=== PATIENT | female | born 1950 | race Caucasian/White ===

== ENCOUNTER 2017-07-20 07:21 | Inpatient (IN) | payer MEDICARE, BC ==
[~2017-07-20] VITALS: Ht 160 cm; Wt 56.7 kg
[~2017-07-20 07:21] MED LIST: PROAIR HFA INH8.5 GM INH; SINGULAIR10 MG PO
[2017-07-20] MEDS ORDERED: DYMISTA NASAL S23 GM (07:39)
[2017-07-20 07:56] LABS: BASOPHILS # (AUTO) 0.1 (0.0-0.1); BASOPHILS % 1.2 % (0.0-1.0); EOSINOPHILS # (AUTO) 0.2 (0.0-0.4); EOSINOPHILS % 3.5 % (0.0-6.0); HEMATOCRIT 42.1 % (34.2-44.1); HEMOGLOBIN 13.8 g/dL (12.0-16.0); LYMPHOCYTES # (AUTO) 2.5 (1.0-3.2); LYMPHOCYTES % 44.2 % (18.0-39.1); MEAN CORPUSCULAR HEMOGLOBIN 31.2 pg (28-32); MEAN CORPUSCULAR HGB CONC 32.8 g/dL (31-35); MEAN CORPUSCULAR VOLUME 95.2 fL (81-99); MONOCYTES # (AUTO) 0.6 (0.2-0.8); MONOCYTES % 10.5 % (4.4-11.3); NEUTROPHILS # (AUTO) 2.3 (2.1-6.9); NEUTROPHILS % 40.4 % (38.7-80.0); PLATELET COUNT 235 x10e3/uL (140-360); RED BLOOD COUNT 4.42 x10e6/uL (3.6-5.1); RED CELL DISTRIBUTION WIDTH 12.8 % (11.7-14.4)
--- NOTE | 2017-07-20 08:07 | Diagnostic Imaging Report ---
PROCEDURE:CHEST 2 VIEWS TECHNIQUE:PA and lateral chest INDICATION:Preoperative evaluation for hernia repair COMPARISON:None. FINDINGS: Symmetric hyperinflation with paucity of interstitial markings in the upper lung zones. Lungs otherwise clear and symmetrically inflated. Normal heart size. Mild pulmonary artery prominence. Intact skeleton. CONCLUSION: Emphysema and associated sequela. No acute abnormality. Dictated by: Davi Simpson M.D. on 07/20/2017 at 8:16 Electronically approved by: Davi Simpson M.D. on 07/20/2017 at 8:16
[2017-07-20 08:17] LABS: ANION GAP 13.1 mmol/L (8-16); BLOOD UREA NITROGEN 17 mg/dL (7-26); BUN/CREATININE RATIO 20 (6-25); CALCIUM 9.3 mg/dL (8.4-10.2); CARBON DIOXIDE 25 mmol/L (22-29); CHLORIDE 105 mmol/L (98-107); CREATININE, SERUM 0.83 mg/dL (0.57-1.11); EST GLOMERULAR FILTRATION RATE > 60 ML/MIN (60-); GLUCOSE 100 mg/dL (74-118); POTASSIUM 4.1 mmol/L (3.5-5.1); SODIUM 139 mmol/L (136-145)
[2017-07-20] MEDS ORDERED: LIDOCAINE HCL 1% LOCAL INJ 20 ML VIAL ONE (09:52)
[2017-07-20] MEDS ORDERED: BUPIVACAINE HCL 0.5% INJ 30 ML VIAL INJ ONE (09:52)
[2017-07-20] MEDS: DEXTROSE 5%/LACTATED RINGERS 1,000 ML IV SCH (10:00)
[2017-07-20] MEDS ORDERED: LEVOFLOXACIN 500MG/D5W 100ML 100 ML IV ONE (10:12)
[2017-07-20] MEDS ORDERED: NALOXONE HCL INJ 0.4 MG/ML AMP IV PRN (13:30)
[2017-07-20] MEDS ORDERED: HYDROMORPHONE 0.2MG/ML-SOD CHL 30ML PCA SYRINGE IV PRN (13:30)
[2017-07-20] MEDS ORDERED: HYDROMORPHONE 0.2MG/ML-SOD CHL 30ML PCA SYRINGE IV ONE (14:08)
[2017-07-20] MEDS: PANTOPRAZOLE 40 MG 10ML VIAL IV SCH (15:00)
--- NOTE | 2017-07-20 15:30 | Operative Report ---
DATE OF PROCEDURE: July 20, 2017 PREOPERATIVE DIAGNOSIS: Recurrent ventral hernia. POSTOPERATIVE DIAGNOSIS: Recurrent ventral hernia. OPERATION PERFORMED: Exploratory laparotomy, extensive lysis of adhesions, removal of old intra-abdominal mesh and repair of recurrent ventral hernia with Physiomesh. ANESTHESIA: General. COMPLICATIONS: None. ESTIMATED BLOOD LOSS: 25 mL. DESCRIPTION OF PROCEDURE: With the patient lying in bed in the supine position, under good general endotracheal anesthesia, the abdomen was prepped with Betadine solution and draped in the usual manner. The old upper midline incision was excised. Immediately in the subcutaneous tissue, a hernia sac was encountered. The hernia sac was then dissected in all directions, and the fascia was identified all the way around. The hernia extended from just below the xiphoid to the area just above the umbilicus. There were several other holes present. There was one particular hole on the patient's right paraumbilical region lateral to where he had one of his previous repairs. There were some circumferential Prolene sutures around the umbilicus that had to be taken down. The umbilicus was from the old repair. At this point, we went ahead and entered the hernia sac and the intra-abdominal cavity. Exploration at this point revealed tight adhesions between the small bowel and the mesh that was in the mid abdomen. The adhesions were then slowly and carefully taken down, and we managed to separate all the bowel without entering the bowel, and all of the adhesions to the mesh were taken down. There was one small serosal tear, which was closed with interrupted sutures of 3-0 silk. After this was done, we decided at this point that, since there were herniations all the way around the old mesh above it and lateral to it, that we would need to repair the entire area. The best way to do it would be to do it intra-abdominally. We went ahead and removed the old mesh in order to be able to do this. Once the old mesh was removed, a Physiomesh to fit the appropriate size was placed and was then anchored in all corners with #1 Prolene. The mesh was then further anchored with a tacker. This gave us a satisfactory reinforcement. Once this was done, the midline fascia of the hernia defect was then closed with a running suture of #1 PDS and also interrupted #1 Prolene sutures. This gave us a satisfactory closure without any tension. The whole area was thoroughly irrigated. Hemostasis was ascertained. The umbilicus was then tacked back down to the midline fascia with 3-0 Vicryl. A 10 flat Andrade-Cortes drain was then placed and brought out through a separate stab wound incision. The subcutaneous tissue was approximated with 2-0 Vicryl, and the skin was closed with clips. Dressings were applied. The sponge, lap and needle count was correct. The patient tolerated the procedure well and returned to the recovery room in stable condition. Job#: [id number]
[2017-07-20] MEDS ORDERED: SEVOFLURANE INHAL SOLN 250 ML PEN BTL ONE (18:15)
[2017-07-20] MEDS ORDERED: LIDOCAINE HCL 2% LOCAL INJ 5 ML SDV VIAL INJ ONE (18:15)
[2017-07-20] MEDS ORDERED: PHENYLEPHRINE HCL 1% 10 MG/ML VIAL ONE (18:15)
[2017-07-20] MEDS ORDERED: ROCURONIUM BROMIDE 10 MG/ML 5ML VIAL ONE (18:15)
[2017-07-20] MEDS ORDERED: PROPOFOL IV EMULSION 10 MG/ML 20 ML VIAL ONE (18:15)
[2017-07-20] MEDS ORDERED: ONDANSETRON HCL INJ 2 MG/ML VIAL ONE (18:15)
[2017-07-20] MEDS ORDERED: EPHEDRINE SULFATE INJ 50 MG/10 ML SYR ONE (18:15)
[2017-07-20] MEDS ORDERED: DEXAMETHASONE SOD PHOS INJ 4 MG/ML VIAL ONE (18:15)
[2017-07-20] MEDS ORDERED: MIDAZOLAM HCL 2 MG/2 ML VIAL ONE (18:33)
[2017-07-20] MEDS ORDERED: FENTANYL CITRATE/PF 100MCG/2 ML INJ ONE ×2 (18:33→19:12)
[2017-07-20 20:00] VITALS: BP 140/78
[2017-07-21] VITALS (10 sets, daily range): BP systolic 122–146; BP diastolic 63–84
--- OUTSIDE RECORDS SUMMARY | 2017-07-21 | XMS REPORT ---
Author [facility] Address Unknown Phone Unavailable Care Team Providers Care Row Boss Hoeing Name Role Phone CARA SAL Unavailable Unavailable Problems This patient has no known problems. Allergies, Adverse Reactions, Alerts This patient has no known allergies or adverse reactions. Medications This patient has no known medications. Results Test Description Test Time Test Comments Text Results Atomic Results Result Comments CHEST 2 VIEWS [place] [address] Patient Name: JIMY REYNOLDS MR #: [id number] : 1950 Age/Sex: 67/F Req #: [id number] Adm Physician: Ordered by: CARA SAL MD Report #: [id number] Location: OR Room/Bed: Procedure: [id number] DX/CHEST 2 VIEWS Exam Date: Exam Time: REPORT STATUS: Signed PROCEDURE: CHEST 2 VIEWS TECHNIQUE: PA and lateral chest INDICATION: Preoperative evaluation for hernia repair COMPARISON: None. FINDINGS: Symmetric hyperinflation with paucity of interstitial markings in the upper lung zones. Lungs otherwise clear and symmetrically inflated. Normal heart size. Mild pulmonary artery prominence. Intact skeleton. CONCLUSION: Emphysema and associated sequela. No acute abnormality. Dictated by: Ric Simpson M.D. on 07/20/2017 at 8:16 Electronically approved by: Ric Simpson M.D. on 07/20/2017 at 8:16 Dictated By: RIC SIMPSON MD 5 Transcribed By: YEVGENIY on 07/20/17815 COPY TO: CARA SAL MD
[2017-07-21] MEDS: SODIUM CHLORIDE 0.9% 250ML IRRIG IR SCH ×3 (03:51→09:03)
[2017-07-21] MEDS ORDERED: DEXTROSE 5%/LACTATED RINGERS 1,000 ML IV ONE (05:51)
[2017-07-21] MEDS: DEXTROSE 5%/LACTATED RINGERS 1,000 ML IV SCH ×2 (05:51→14:23)
[2017-07-21 07:06] LABS: BASOPHILS # (AUTO) 0.1 (0.0-0.1); BASOPHILS % 0.6 % (0.0-1.0); EOSINOPHILS % 0.1 % (0.0-6.0); HEMATOCRIT 38.8 % (34.2-44.1); HEMOGLOBIN 12.5 g/dL (12.0-16.0); LYMPHOCYTES # (AUTO) 1.7 (1.0-3.2); LYMPHOCYTES % 16.9 % (18.0-39.1); MEAN CORPUSCULAR HEMOGLOBIN 31.3 pg (28-32); MEAN CORPUSCULAR HGB CONC 32.2 g/dL (31-35); MONOCYTES # (AUTO) 0.8 (0.2-0.8); MONOCYTES % 8.1 % (4.4-11.3); NEUTROPHILS # (AUTO) 7.6 (2.1-6.9); NEUTROPHILS % 73.9 % (38.7-80.0); PLATELET COUNT 213 x10e3/uL (140-360); RED CELL DISTRIBUTION WIDTH 13.1 % (11.7-14.4)
[2017-07-21 07:27] LABS: ANION GAP 10.4 mmol/L (8-16); BLOOD UREA NITROGEN 9 mg/dL (7-26); BUN/CREATININE RATIO 12 (6-25); CALCIUM 8.9 mg/dL (8.4-10.2); CARBON DIOXIDE 27 mmol/L (22-29); CHLORIDE 104 mmol/L (98-107); CREATININE, SERUM 0.75 mg/dL (0.57-1.11); EST GLOMERULAR FILTRATION RATE > 60 ML/MIN (60-); GLUCOSE 122 mg/dL (74-118); POTASSIUM 4.4 mmol/L (3.5-5.1); SODIUM 137 mmol/L (136-145)
[2017-07-21] MEDS ORDERED: LEVOFLOXACIN 500MG/D5W 100ML 100 ML IV ONE ×2 (09:00)
[2017-07-21] MEDS: PANTOPRAZOLE 40 MG 10ML VIAL IV SCH (14:43)
[2017-07-21] MEDS: ONDANSETRON HCL INJ 2 MG/ML VIAL IV PRN (14:47)
[2017-07-21] MEDS ORDERED: MORPHINE SULFATE 4 MG/ML SYR IV PRN (15:45)
[2017-07-21] MEDS ORDERED: ACETAMINOPHEN 1000 MG/100 ML IV SCH (18:00)
[2017-07-21] MEDS ORDERED: ACETAMINOPHEN 1000 MG/100 ML IV PRN (18:00)
[2017-07-21] MEDS: KETOROLAC TROMETHAMINE 30 MG/ML VIAL IV PRN (19:12)
[2017-07-22] VITALS: BP 155/72
[2017-07-22] MEDS: DEXTROSE 5%/LACTATED RINGERS 1,000 ML IV SCH (00:49)
[2017-07-22] MEDS: MORPHINE SULFATE 2 MG/ML SYR IV PRN ×2 (01:07→09:47)
[2017-07-22] MEDS: ONDANSETRON HCL INJ 2 MG/ML VIAL IV PRN ×2 (01:07→09:47)
[2017-07-22 04:00] VITALS: BP 156/82
[2017-07-22] MEDS: KETOROLAC TROMETHAMINE 30 MG/ML VIAL IV PRN ×2 (05:55→16:55)
[2017-07-22 08:28] VITALS: BP 132/58
[2017-07-22 11:43] VITALS: BP 115/55
[2017-07-22] MEDS: PANTOPRAZOLE 40 MG 10ML VIAL IV SCH ×3 (15:03→15:10)
[2017-07-22 16:49] VITALS: BP 178/85
[2017-07-22] MEDS ORDERED: HYDROCODONE/APAP 7.5MG-325MG 1 EA TAB PO PRN (19:30)
[2017-07-22 20:00] VITALS: BP 149/71
[2017-07-22] MEDS: BISACODYL 10 MG SUPP PR SCH (21:00)
[2017-07-23] VITALS: BP 156/82
[2017-07-23] MEDS: ONDANSETRON HCL INJ 2 MG/ML VIAL IV PRN (01:21)
[2017-07-23 04:00] VITALS: BP 162/73
[2017-07-23] MEDS: BISACODYL 10 MG SUPP PR SCH (08:00)
[2017-07-23 08:49] VITALS: BP 165/84
[2017-07-23 12:06] VITALS: BP 179/82
[2017-07-23] MEDS: KETOROLAC TROMETHAMINE 30 MG/ML VIAL IV PRN (13:47)
[2017-07-23] MEDS: PANTOPRAZOLE 40 MG 10ML VIAL IV SCH ×2 (15:00→15:35)
[2017-07-23 17:59] VITALS: BP 168/73
[2017-07-23 20:00] VITALS: BP 165/72
== END 2017-07-23 20:45 | disposition home or self-care (01) | DRG 355 ==
LOC: OR 07:21 → MED/SURG 23:57
PROVIDERS: ADMIT Surgery; ATTEND Surgery
PROC: 0WUF0JZ Supplement Abdominal Wall with Synthetic Substitute, Open Approach (ICD-10-PCS; principal; 2017-07-20 10:49)
PROC: 0WJF4ZZ Inspection of Abdominal Wall, Percutaneous Endoscopic Approach (ICD-10-PCS; principal; 2017-07-20 10:49)
PROC: 3E0M05Z Introduction of Adhesion Barrier into Peritoneal Cavity, Open Approach (ICD-10-PCS; principal; 2017-07-20 10:49)
DX: K43.9 Ventral hernia without obstruction or gangrene (principal); J45.909 Unspecified asthma, uncomplicated; Z87.11 Personal history of peptic ulcer disease
CPT/HCPCS: 36415; 71046; 80048; 85025; 88302; 93005; J1100; J1885; J1956; J2001; J2250; J2270; J2370; J2405; J7120

== ENCOUNTER → 2017-09-29 | Outpatient (CLI) | payer MEDICARE, BC ==
[~2017-09-29] MED LIST changes: +DYMISTA NASAL S23 GM
--- NOTE | 2017-09-29 13:04 | Diagnostic Imaging Report ---
EXAM: DXA BONE DENSITY INDICATIONS: DISORDER OF BONE COMPARISON: None. FINDINGS: Proximal left femur bone mineral density (BMD) (g/cm2):-0.627 Femur T-score (standard deviation relative to young adult mean BMD): -2.6 Femur Z-score (standard deviation relative to age-matched control group):-1.3 Lumbar bone mineral density (BMD) (g/cm2):0.728 Lumbar T-score (standard deviation relative to young adult mean BMD): -2.9 Lumbar Z-score (standard deviation relative to age-matched control group):-1.1 Change since prior exam (%): Femur:Not applicable. Spine:Not applicable. Change since oldest prior exam (%): Femur:Not applicable. Spine:Not applicable. CONCLUSION: 1. Bone mineral density in the left femur is classified as osteoporosis. Fracture risk is increased. 2. Bone mineral density in the spine is classified as osteoporosis. Fracture risk is increased. World Health Organization Classification: *The Z-score is provided for informational purposes. The T-score is preferable for clinical decisions. When comparing exams, a change of >4% is considered statistically significant. SUGGESTED RECOMMENDATIONS: Normal \T\ Osteopenia:Consideration should be given to use of calcium supplementation, daily multiple vitamins and adequate exercise, as preventive measures against osteoporosis, if clinically indicated. Osteoporosis \T\ Severe Osteoporosis:In addition to the above, consideration should be given to medical therapy against osteoporosis, if clinically indicated. Curly Hudson D.O. Dictated by: Curly Hudson D.O. on 09/29/2017 at 13:05 Electronically approved by: Curly Hudson D.O. on 09/29/2017 at 13:05
--- NOTE | 2017-09-30 08:53 | Diagnostic Imaging Report ---
#[id number] - MGSCRBIL #BILATERAL DIGITAL SCREENING MAMMOGRAM WITH CAD: 09/29/2017 CLINICAL: Routine screening. Comparison is made to exam dated: 06/26/2012 mammogram - [facility]. Current study contains 4 films. The tissue of both breasts is heterogeneously dense. This may lower the sensitivity of mammography. Current study was also evaluated with a Computer Aided Detection (CAD) system. There are benign calcifications in both breasts. No significant masses, calcifications, or other findings are seen in either breast. There has been no significant interval change. IMPRESSION: BENIGN There is no mammographic evidence of malignancy. A 1 year screening mammogram is recommended. The patient will be notified by letter of the results. Curly echavarria/bertrand:09/29/2017 13:05:27 Paper Grader: Vero ARIAS(Geovanny)(M), [facility] letter sent: Compared to Prior B9 Mammogram BI-RADS: 2 Benign
== END ==
LOC: MAMMO 12:09
PROVIDERS: ATTEND Obstetrics & Gynecology
DX: Z12.31 Encounter for screening mammogram for malignant neoplasm of breast (principal); M89.9 Disorder of bone, unspecified
CPT/HCPCS: 77067; 77080

== ENCOUNTER → 2019-07-13 | Day surgery (SDC) | payer MEDICARE, BC ==
[2019-07-11 15:48] LABS: BASOPHILS # (AUTO) 0.1 (0.0-0.1); BASOPHILS % 1.3 % (0.0-1.0); EOSINOPHILS # (AUTO) 0.3 (0.0-0.4); EOSINOPHILS % 3.9 % (0.0-6.0); HEMOGLOBIN 14.9 g/dL (12.0-16.0); LYMPHOCYTES # (AUTO) 3.4 (1.0-3.2); LYMPHOCYTES % 49.1 % (18.0-39.1); MEAN CORPUSCULAR HEMOGLOBIN 32.3 pg (28-32); MEAN CORPUSCULAR HGB CONC 33.1 g/dL (31-35); MEAN CORPUSCULAR VOLUME 97.6 fL (81-99); MONOCYTES # (AUTO) 0.6 (0.2-0.8); MONOCYTES % 9.2 % (4.4-11.3); NEUTROPHILS # (AUTO) 2.5 (2.1-6.9); NEUTROPHILS % 36.4 % (38.7-80.0); PLATELET COUNT 268 x10e3/uL (140-360); RED BLOOD COUNT 4.61 x10e6/uL (3.6-5.1); RED CELL DISTRIBUTION WIDTH 12.6 % (11.7-14.4)
--- NOTE | 2019-07-11 16:18 | Diagnostic Imaging Report ---
EXAMINATION: CHEST 2 VIEWS INDICATION: Pre-operative COMPARISON: Chest radiograph 07/20/2017 FINDINGS: LINES/TUBES:None LUNGS:The lungs are hyperinflated. Bilateral upper lobe predominant emphysematous changes. No focal consolidation or pulmonary edema. PLEURA:No pleural effusion or pneumothorax. MEDIASTINUM:The cardiomediastinal silhouette appears unchanged in size and shape. Atherosclerotic calcifications of the thoracic aorta. BONES/SOFT TISSUES:No acute osseous injury. ABDOMEN:No free air under the diaphragm. IMPRESSION: Hyperinflated lungs with emphysematous changes. No focal pneumonia or pulmonary edema. Signed by: Howard Gonzalez MD on 07/11/2019 4:16 PM
[~2019-07-13] MED LIST changes: +BUPIVACAINE HCL 0.5% INJ 30 ML VIAL INJ ONE; +DEXAMETHASONE SOD PHOS INJ 4 MG/ML VIAL ONE; +FENTANYL CITRATE/PF 100MCG/2 ML INJ ONE; +KETOROLAC TROMETHAMINE 30 MG/ML VIAL ONE; +LIDOCAINE HCL 2% LOCAL INJ 5 ML SDV VIAL INJ ONE; +LOSARTAN POTASS25 MG PO; +MIDAZOLAM HCL 2 MG/2 ML VIAL ONE; +ONDANSETRON HCL INJ 2MG/ML 2ML 2 MG/ML VIAL ONE; +PROPOFOL IV EMULSION 10 MG/ML 20 ML VIAL ONE; +SEVOFLURANE INHAL SOLN 250 ML PEN BTL ONE; +TRELEGY ELLIPT1 EACH INH; +VANCOMYCIN 1GM/NS 250 ML 250 ML ONE
[2019-07-13 08:25] VITALS: BP 132/70
--- NOTE | 2019-07-13 14:33 | Operative Report ---
DATE OF PROCEDURE: 07/13/2019 SURGEON: Gold Sauceda DPM PREOPERATIVE DIAGNOSES: 1. Hypertrophied condyle, first metatarsal and proximal phalanx, left foot. 2. Hypertrophied condyle, left fifth metatarsal. 3. Dorsally contracted digit, left fifth. PLANNED PROCEDURES: 1. Condylectomy, left first metatarsal. 2. Condylectomy, left fifth metatarsal. 3. V to Y skin plasty with extensor tenotomy. HAT AND CAP DRYING ROOM ATTENDANT: Gold Sauceda DPM ANESTHESIA: General with a postoperative block consisting of 15 mL of 2% Marcaine plain mixed with 1 mL of dexamethasone phosphate. HEMOSTASIS: Pneumatic thigh tourniquet set at 350 mmHg for a total time of approximately 30 minutes. MATERIALS: 2-0 Vicryl, 3-0 Vicryl, 4-0 nylon. ESTIMATED BLOOD LOSS: Less than 10 mL. PATHOLOGY: None. PROCEDURE NOTE: The patient was seen in the preoperative waiting room. The correct procedure site was identified. The patient was brought to the operating room and placed on the operating table in the supine position. General anesthesia was initiated. At this time, a well-padded pneumatic tourniquet was placed about the patient's left thigh. The left foot, ankle, and leg were then scrubbed, prepped, and draped in the usual aseptic manner. The right foot, ankle, and leg were exsanguinated with an Esmarch bandage and the pneumatic thigh tourniquet was inflated to 350 mmHg for a total time of approximately 30 minutes. Attention was directed to the medial aspect of the patient's left first metatarsophalangeal joint, where a 5 cm linear incision was made. Incision was carried through subcutaneous tissue them from deep or underlying structures. All vital neurovascular structures were identified, retracted medially and laterally and all bleeders were cauterized or ligated as deemed necessary. At this time, a linear capsulotomy was performed at the medial aspect of the first metatarsophalangeal joint and dissected down to the level of the plantar condyles of the first metatarsal as well as the proximal phalanx. Care was ensured to identify and retract the flexor hallucis longus tendon. Next utilizing a rotary bur, the plantar condyles of the first metatarsal as well as the base of the proximal phalanx were reduced and passed off to the back table. The wound was then copiously irrigated with sterile saline capsule and deep tissue were reapproximated with 2-0 Vicryl, subcutaneous tissue with 3-0 Vicryl, and the skin was closed using a running interlocking stitch of 4-0 nylon. Attention was then directed to the fifth metatarsophalangeal joint, where a V to Y skin plasty incision was performed approximately 1 cm in length each. The dissection was then carried down to the level of fifth metatarsophalangeal joint where extensor tenotomy was performed. The fifth metatarsophalangeal joint was entered utilizing a #15 blade and McGlamry elevator to free of all capsular ligamentous attachments. Next, utilizing an osteotome and mallet, the plantar condyle was resected and utilizing a rasp, smoothed down to anatomical alignment. The wound was then copiously irrigated with sterile saline. The deep tissues reapproximated 3-0 Vicryl, subcutaneous tissue with 3-0 Vicryl, and the skin was closed in a V to Y fashion with simple interrupted sutures of 4-0 nylon. Incision site was dressed with Adaptic, 4x4s, Kerlix, Panda wrap, and a postop shoe. The patient tolerated the procedure and anesthesia well. The patient was transferred to the postoperative recovery with vital signs stable and vascular status intact. The patient was monitored there for a short period of time before being sent home with the following written and oral instructions: 1. Keep the dressing clean, dry, and intact. 2. The patient is to remain partial heel touch weightbearing to the left foot to avoid excessive ambulation until being seen in the office. 3. The patient is given the office number to contact us if any problems arise. Dictated by Gold Sauceda DPM S BRITTANY Barrett (Charley)/MODL /[id number]
== END | disposition home or self-care (01) ==
LOC: OR 05:22
PROVIDERS: ATTEND Podiatrist Foot & Ankle Surgery
DX: M89.372 Hypertrophy of bone, left ankle and foot (principal); M21.622 Bunionette of left foot; M20.5X2 Other deformities of toe(s) (acquired), left foot; J44.9 Chronic obstructive pulmonary disease, unspecified; I10 Essential (primary) hypertension; F32.9 Major depressive disorder, single episode, unspecified; Z88.1 Allergy status to other antibiotic agents; Z88.0 Allergy status to penicillin; Z88.2 Allergy status to sulfonamides; Z01.810 Encounter for preprocedural cardiovascular examination; Z01.812 Encounter for preprocedural laboratory examination; Z01.818 Encounter for other preprocedural examination
CPT/HCPCS: 28124; 28288 ×2; 36415; 71046; 85025; 93005; J1100; J1885; J2001; J2250; J2405; J2704; J3010; J3370

== ENCOUNTER → 2019-11-11 | Outpatient (CLI) | payer MEDICARE, BC ==
[~2019-11-11] MED LIST changes: -BUPIVACAINE HCL 0.5% INJ 30 ML VIAL INJ ONE; -DEXAMETHASONE SOD PHOS INJ 4 MG/ML VIAL ONE; -FENTANYL CITRATE/PF 100MCG/2 ML INJ ONE; -KETOROLAC TROMETHAMINE 30 MG/ML VIAL ONE; -LIDOCAINE HCL 2% LOCAL INJ 5 ML SDV VIAL INJ ONE; -MIDAZOLAM HCL 2 MG/2 ML VIAL ONE; -ONDANSETRON HCL INJ 2MG/ML 2ML 2 MG/ML VIAL ONE; -PROPOFOL IV EMULSION 10 MG/ML 20 ML VIAL ONE; -SEVOFLURANE INHAL SOLN 250 ML PEN BTL ONE; -VANCOMYCIN 1GM/NS 250 ML 250 ML ONE
--- NOTE | 2019-11-14 10:32 | Diagnostic Imaging Report ---
Exam: Bone mineral density study. History: Age related osteoporosis Comparison: 09/29/2017 Discussion: Evaluation of the left hip and lumbar spine was performed. The study is technically adequate. The patient's fracture risk is compared to an age-matched control. The patient denies prior surgery/fracture of the spine, hips or forearm. Left hip femoral neck bone mineral density: 0.629 g/cm2, T-score is -2.0, Z-score is -0.3. Left hip total bone mineral density: 0.645 g/cm2, T-score is -2.4, Z-score is -1.1. Left hip bone mineral density is increased 2.8% from the prior examination from 09/29/2017. Lumbar spine total bone mineral density: 0.780 gm/cm2, T-score is -2.4, Z-score is -0.5. Lumbar spine bone mineral density is increased 7.2% from the prior examination from 11/11/2019 Impression: 1. Bone mineralization by WHO Classification of the left hip is osteopenia, the fracture risk is moderate. 2. Bone mineralization by WHO Classification of the lumbar spine is osteopenia, the fracture risk is moderate. Recommendations: Medical evaluation for secondary causes of low bone mineral density may be appropriate. Correlate clinically for the necessity and timing of the next bone mineral density study. Signed by: Dr. Daniel Mullen MD on 11/14/2019 10:29 AM
== END ==
LOC: MAMMO 09:58
PROVIDERS: ATTEND Obstetrics & Gynecology
DX: Z12.31 Encounter for screening mammogram for malignant neoplasm of breast (principal); M81.0 Age-related osteoporosis without current pathological fracture
CPT/HCPCS: 77067; 77080

== ENCOUNTER 2020-11-10 12:22 | Emergency (ER) | payer MEDICARE, BC ==
[~2020-11-10] VITALS: Ht 157.5 cm; Wt 61.2 kg
[2020-11-10] MEDS ORDERED: ALBUTEROL/IPRATROPIUM 3 ML NEB NEB NR (12:45)
[2020-11-10] MEDS ORDERED: DEXAMETHASONE SOD PHOS 10 MG/1 ML VIAL IM NR (12:45)
[2020-11-10 14:29] VITALS: BP 134/71
== END 2020-11-10 14:37 | disposition home or self-care (01) ==
LOC: ER 12:32
DX: R05 Cough (principal); J40 Bronchitis, not specified as acute or chronic; I10 Essential (primary) hypertension; F17.210 Nicotine dependence, cigarettes, uncomplicated
CPT/HCPCS: 71045; 94640; 99283; J1100

== ENCOUNTER 2020-11-18 16:59 | Emergency (ER) | payer MEDICARE, BC ==
[~2020-11-18] VITALS: Ht 157.5 cm; Wt 61.2 kg
[2020-11-18] MEDS ORDERED: SODIUM CHLORIDE 0.9% 1000ML 1,000 ML IV STA (17:16)
[2020-11-18 17:39] LABS: BASOPHILS # (AUTO) 0.1 (0.0-0.1); BASOPHILS % 0.8 % (0.0-1.0); EOSINOPHILS # (AUTO) 0.1 (0.0-0.4); EOSINOPHILS % 1.1 % (0.0-6.0); HEMATOCRIT 42.3 % (34.2-44.1); HEMOGLOBIN 14.4 g/dL (12.0-16.0); LYMPHOCYTES # (AUTO) 2.9 (1.0-3.2); LYMPHOCYTES % 26.5 % (18.0-39.1); MEAN CORPUSCULAR HEMOGLOBIN 31.5 pg (28-32); MEAN CORPUSCULAR VOLUME 92.6 fL (81-99); MONOCYTES # (AUTO) 1.2 (0.2-0.8); NEUTROPHILS # (AUTO) 6.5 (2.1-6.9); NEUTROPHILS % 60.2 % (38.7-80.0); PLATELET COUNT 436 x10e3/uL (140-360); RED BLOOD COUNT 4.57 x10e6/uL (3.6-5.1); RED CELL DISTRIBUTION WIDTH 13.1 % (11.7-14.4)
[2020-11-18 17:56] LABS: CLARITY,URINE HAZY (CLEAR); COLOR,URINE YELLOW (YELLOW); KETONES,URINE TRACE (NEGATIVE); LEUKOCYTE ESTERASE ,URINE NEGATIVE (NEGATIVE); NITRITE,URINE NEGATIVE (NEGATIVE); PROTEIN,URINE DIPSTICK NEGATIVE (NEGATIVE); URINE UROBILINOGEN 0.2 mg/dL (0.2 - 1)
[2020-11-18 17:56] LABS: ALANINE AMINOTRANSFERASE 54 IU/L (0-55); ALBUMIN 3.7 g/dL (3.5-5.0); ALBUMIN/GLOBULIN RATIO 0.9 (0.8-2.0); ALKALINE PHOSPHATASE 87 IU/L (40-150); ANION GAP 19.7 mmol/L (8-16); BLOOD UREA NITROGEN 13 mg/dL (7-26); BUN/CREATININE RATIO 13 (6-25); CALCIUM 8.7 mg/dL (8.4-10.2); CARBON DIOXIDE 18 mmol/L (22-29); CHLORIDE 99 mmol/L (98-107); CREATINE KINASE 28 IU/L (29-168); EST GLOMERULAR FILTRATION RATE 55 ML/MIN (60-); GLUCOSE 112 mg/dL (74-118); POTASSIUM 4.7 mmol/L (3.5-5.1); SODIUM 132 mmol/L (136-145)
[2020-11-18 17:57] LABS: BACTERIA,URINE FEW /HPF; EPITHELIAL CELLS,URINE MODERATE /LPF; RBC,URINE 0-5 /HPF (0-5); WBC,URINE (MAN) 0-5 /HPF (0-5)
[2020-11-18] MEDS ORDERED: CIPRO500 MG PO (18:50)
[2020-11-18 18:54] VITALS: BP 116/69
== END 2020-11-18 19:01 | disposition home or self-care (01) ==
LOC: ER 17:17
DX: R50.9 Fever, unspecified (principal); N39.0 Urinary tract infection, site not specified; R51.9 Headache, unspecified; I10 Essential (primary) hypertension
CPT/HCPCS: 36415; 70450; 71045; 80053; 81001; 82550; 82553; 83880; 84484; 85025; 99284; J7030

== ENCOUNTER → 2021-10-30 | Outpatient (CLI) | payer MEDICARE, BC ==
[~2021-10-30] MED LIST changes: +CIPRO500 MG PO
== END ==
LOC: MAMMO 08:47
PROVIDERS: ATTEND Student in an Organized Health Care Education/Training Program
DX: Z12.31 Encounter for screening mammogram for malignant neoplasm of breast (principal)
CPT/HCPCS: 77067

== ENCOUNTER 2021-12-01 11:37 | Inpatient (IN) | payer MEDICARE, BC ==
[~2021-12-01] VITALS: Ht 152.4 cm; Wt 64.9 kg
[2021-12-01] MEDS ORDERED: KETOROLAC TROMETHAMINE 30 MG/ML VIAL IV STA (11:55)
[2021-12-01] MEDS ORDERED: ONDANSETRON HCL INJ 2MG/ML 2ML 2 MG/ML VIAL IV STA (11:55)
[2021-12-01] MEDS ORDERED: SODIUM CHLORIDE 0.9% 1000ML 1,000 ML IV ONE (12:30)
[2021-12-01 12:38] LABS: BASOPHILS # (AUTO) 0.1 (0.0-0.1); BASOPHILS % 0.3 % (0.0-1.0); EOSINOPHILS # (AUTO) 0.1 (0.0-0.4); EOSINOPHILS % 0.4 % (0.0-6.0); HEMATOCRIT 44.9 % (34.2-44.1); HEMOGLOBIN 14.6 g/dL (12.0-16.0); LYMPHOCYTES # (AUTO) 1.3 (1.0-3.2); LYMPHOCYTES % 6.6 % (18.0-39.1); MEAN CORPUSCULAR HEMOGLOBIN 31.9 pg (28-32); MEAN CORPUSCULAR HGB CONC 32.5 g/dL (31-35); MONOCYTES % 4.9 % (4.4-11.3); NEUTROPHILS # (AUTO) 17.4 (2.1-6.9); NEUTROPHILS % 87.3 % (38.7-80.0); PLATELET COUNT 256 x10e3/uL (140-360); RED BLOOD COUNT 4.58 x10e6/uL (3.6-5.1); RED CELL DISTRIBUTION WIDTH 12.9 % (11.7-14.4)
[2021-12-01 12:49] LABS: THYROID STIMULATING HORMONE 1.841 uIU/mL (0.350-4.940)
[2021-12-01 12:53] LABS: INR 1.05; PROTHROMBIN TIME 14.7 seconds (11.9-14.5)
[2021-12-01 12:54] LABS: PARTIAL THROMBOPLASTIN TIME 35.5 seconds (23.8-35.5)
[2021-12-01] MEDS ORDERED: METHYLPREDNISOLONE SOD SUCC 125 MG/2ML VIAL IV ONE (13:00)
[2021-12-01 13:03] LABS: ALANINE AMINOTRANSFERASE 19 IU/L (0-55); ALBUMIN/GLOBULIN RATIO 0.7 (0.8-2.0); ALKALINE PHOSPHATASE 88 IU/L (40-150); ANION GAP 16.4 mmol/L (8-16); BLOOD UREA NITROGEN 18 mg/dL (7-26); BUN/CREATININE RATIO 13 (6-25); CALCIUM 9.4 mg/dL (8.4-10.2); CARBON DIOXIDE 22 mmol/L (22-29); CHLORIDE 99 mmol/L (98-107); CREATINE KINASE 60 IU/L (29-168); CREATININE, SERUM 1.35 mg/dL (0.57-1.11); GLUCOSE 110 mg/dL (74-118); POTASSIUM 4.4 mmol/L (3.5-5.1); SODIUM 133 mmol/L (136-145)
[2021-12-01 13:19] LABS: CLARITY,URINE CLOUDY (CLEAR); COLOR,URINE YELLOW (YELLOW)
[2021-12-01 13:20] LABS: KETONES,URINE 1+ (NEGATIVE); LEUKOCYTE ESTERASE ,URINE NEGATIVE (NEGATIVE); NITRITE,URINE NEGATIVE (NEGATIVE); PROTEIN,URINE DIPSTICK 2+ (NEGATIVE); URINE UROBILINOGEN 0.2 mg/dL (0.2 - 1)
[2021-12-01 13:38] LABS: BACTERIA,URINE MODERATE /HPF; EPITHELIAL CELLS,URINE MODERATE /LPF; RBC,URINE 0-5 /HPF (0-5)
[2021-12-01] MEDS: SODIUM CHLORIDE 0.9% 1000ML 1,000 ML IV SCH ×2 (14:20→16:00)
[2021-12-01] MEDS: ALBUTEROL SULF 0.083% NEB SOLN 3 ML NEB NEB SCH ×2 (14:30→19:12)
[2021-12-01] MEDS: IPRATROPIUM BROMIDE 0.02% 2.5 ML NEB NEB SCH ×2 (14:30→19:12)
[2021-12-01 16:00] VITALS: BP 110/51
[2021-12-01 16:35] VITALS: BP 110/51
[2021-12-01 16:42] VITALS: BP 110/51
[2021-12-01 20:00] VITALS: BP 122/75
[2021-12-01] MEDS ORDERED: REMDESIVIR 200MG 200 MG in SODIUM CHLORIDE 0.9% 100 ML IV ONE (20:30)
[2021-12-01 21:00] VITALS: BP 122/75
[2021-12-01] MEDS: IPRATROPIUM/ALBUTEROL SULFATE 4 GM INH INH SCH (23:00)
[2021-12-02] VITALS (8 sets, daily range): BP systolic 93–131; BP diastolic 51–79
[2021-12-02] MEDS: IPRATROPIUM/ALBUTEROL SULFATE 4 GM INH INH SCH ×6 (00:14→23:20)
[2021-12-02 07:01] LABS: BASOPHILS % 0.1 % (0.0-1.0); HEMATOCRIT 38.6 % (34.2-44.1); HEMOGLOBIN 13.7 g/dL (12.0-16.0); LYMPHOCYTES # (AUTO) 0.6 (1.0-3.2); LYMPHOCYTES % 2.8 % (18.0-39.1); MEAN CORPUSCULAR HEMOGLOBIN 35.2 pg (28-32); MEAN CORPUSCULAR HGB CONC 35.5 g/dL (31-35); MEAN CORPUSCULAR VOLUME 99.2 fL (81-99); MONOCYTES # (AUTO) 0.5 (0.2-0.8); MONOCYTES % 2.1 % (4.4-11.3); NEUTROPHILS # (AUTO) 20.3 (2.1-6.9); NEUTROPHILS % 94.3 % (38.7-80.0); PLATELET COUNT 234 x10e3/uL (140-360); RED BLOOD COUNT 3.89 x10e6/uL (3.6-5.1); RED CELL DISTRIBUTION WIDTH 13.1 % (11.7-14.4)
[2021-12-02 07:23] LABS: ALBUMIN 2.5 g/dL (3.5-5.0); ALBUMIN/GLOBULIN RATIO 0.6 (0.8-2.0); ANION GAP 15.2 mmol/L (8-16); CALCIUM 8.8 mg/dL (8.4-10.2); CREATINE KINASE 43 IU/L (29-168); CREATININE, SERUM 0.92 mg/dL (0.57-1.11); POTASSIUM 4.2 mmol/L (3.5-5.1)
[2021-12-02] MEDS ORDERED: REMDESIVIR 200MG 200 MG in SODIUM CHLORIDE 0.9% 100 ML IV ONE ×2 (08:00→11:00)
[2021-12-02] MEDS: FAMOTIDINE 20 MG TAB PO SCH ×2 (08:01→17:02)
[2021-12-02] MEDS ORDERED: ALBUTEROL SULFATE HFA 8GM INHALATION AEROSOL INH PRN (08:30)
[2021-12-02] MEDS ORDERED: MONTELUKAST SODIUM 10 MG TAB PO SCH (08:30)
[2021-12-02] MEDS: ENOXAPARIN 30 MG/0.3 ML SYR SC SCH ×2 (11:48→21:00)
[2021-12-02] MEDS ORDERED: SODIUM CHLORIDE 0.9% 250ML 250 ML ONE ×2 (12:10→13:25)
[2021-12-02 14:45] LABS: CREATINE KINASE 42 IU/L (29-168)
[2021-12-02 15:12] LABS: BAND NEUTROPHILS % (MANUAL) 3 %; LYMPHOCYTES % (MANUAL) 1 % (19-48); MONOCYTES % (MANUAL) 3 % (3.4-9.0); NEUTROPHILS % (MANUAL) 93 % (40-74); PLATELET ESTIMATE ADEQUATE; PLATELET MORPHOLOGY COMMENT NORMAL; RBC MORPHOLOGY COMMENT NORMAL
[2021-12-02] MEDS: BUDESONIDE/FORMOTEROL 160/4.5MCG INHALER INH SCH (19:00)
[2021-12-03] VITALS (8 sets, daily range): BP systolic 96–139; BP diastolic 32–74
[2021-12-03] MEDS: IPRATROPIUM/ALBUTEROL SULFATE 4 GM INH INH SCH ×6 (03:00→23:38)
[2021-12-03 06:48] LABS: BASOPHILS # (AUTO) 0.1 (0.0-0.1); BASOPHILS % 0.2 % (0.0-1.0); HEMATOCRIT 35.9 % (34.2-44.1); LYMPHOCYTES # (AUTO) 1.4 (1.0-3.2); LYMPHOCYTES % 6.8 % (18.0-39.1); MEAN CORPUSCULAR HEMOGLOBIN 38.5 pg (28-32); MEAN CORPUSCULAR VOLUME 98.6 fL (81-99); MONOCYTES # (AUTO) 0.8 (0.2-0.8); MONOCYTES % 3.7 % (4.4-11.3); NEUTROPHILS # (AUTO) 18.4 (2.1-6.9); NEUTROPHILS % 88.3 % (38.7-80.0); PLATELET COUNT 265 x10e3/uL (140-360); RED BLOOD COUNT 3.64 x10e6/uL (3.6-5.1); RED CELL DISTRIBUTION WIDTH 13.4 % (11.7-14.4)
[2021-12-03] MEDS: BUDESONIDE/FORMOTEROL 160/4.5MCG INHALER INH SCH ×2 (07:12→20:02)
[2021-12-03 07:21] LABS: ALBUMIN 2.4 g/dL (3.5-5.0); ALBUMIN/GLOBULIN RATIO 0.6 (0.8-2.0); ANION GAP 15.3 mmol/L (8-16); CALCIUM 8.8 mg/dL (8.4-10.2); CREATININE, SERUM 0.77 mg/dL (0.57-1.11); POTASSIUM 4.3 mmol/L (3.5-5.1)
[2021-12-03 08:08] LABS: CREATINE KINASE 50 IU/L (29-168)
[2021-12-03] MEDS: ENOXAPARIN 30 MG/0.3 ML SYR SC SCH ×2 (08:12→21:00)
[2021-12-03] MEDS: FAMOTIDINE 20 MG TAB PO SCH ×2 (08:12→17:27)
[2021-12-03 12:22] LABS: BAND NEUTROPHILS % (MANUAL) 2 %; LYMPHOCYTES % (MANUAL) 8 % (19-48); MONOCYTES % (MANUAL) 4 % (3.4-9.0); NEUTROPHILS % (MANUAL) 86 % (40-74)
[2021-12-03 12:23] LABS: PLATELET ESTIMATE ADEQUATE; PLATELET MORPHOLOGY COMMENT NORMAL; RBC MORPHOLOGY COMMENT NORMAL
[2021-12-03] MEDS: REMDESIVIR 100MG 100 MG in SODIUM CHLORIDE 0.9% 100 ML IV SCH (15:00)
[2021-12-03] MEDS: ASCORBIC ACID 500 MG TAB PO SCH (17:27)
[2021-12-03] MEDS: GUAIFENESIN 600MG/DEXTROMETHORPHAN 30MG TABSR PO SCH (17:27)
[2021-12-04] VITALS (26 sets, daily range): BP systolic 86–123; BP diastolic 44–94
[2021-12-04] MEDS: GUAIFENESIN 600MG/DEXTROMETHORPHAN 30MG TABSR PO SCH ×3 (02:26→17:09)
[2021-12-04] MEDS: IPRATROPIUM/ALBUTEROL SULFATE 4 GM INH INH SCH ×5 (04:12→20:10)
[2021-12-04 06:07] LABS: BASOPHILS # (AUTO) 0.2 (0.0-0.1); BASOPHILS % 0.6 % (0.0-1.0); HEMATOCRIT 33.9 % (34.2-44.1); HEMOGLOBIN 13.2 g/dL (12.0-16.0); LYMPHOCYTES # (AUTO) 1.1 (1.0-3.2); LYMPHOCYTES % 4.5 % (18.0-39.1); MEAN CORPUSCULAR HEMOGLOBIN 38.2 pg (28-32); MEAN CORPUSCULAR HGB CONC 38.9 g/dL (31-35); MONOCYTES # (AUTO) 0.6 (0.2-0.8); MONOCYTES % 2.2 % (4.4-11.3); NEUTROPHILS # (AUTO) 22.6 (2.1-6.9); NEUTROPHILS % 90.8 % (38.7-80.0); PLATELET COUNT 286 x10e3/uL (140-360); RED BLOOD COUNT 3.46 x10e6/uL (3.6-5.1)
[2021-12-04 06:23] LABS: ANION GAP 16.1 mmol/L (8-16); CALCIUM 8.7 mg/dL (8.4-10.2); CREATININE, SERUM 0.71 mg/dL (0.57-1.11); POTASSIUM 4.1 mmol/L (3.5-5.1)
[2021-12-04] MEDS ORDERED: AMIODARONE HCL 150 MG/100 ML BAG IV ONE (06:30)
[2021-12-04] MEDS ORDERED: AMIODARONE 900MG 900 MG in Premix Bag 1 BAG IV SCH (07:00)
[2021-12-04] MEDS: BUDESONIDE/FORMOTEROL 160/4.5MCG INHALER INH SCH ×2 (07:00→20:10)
[2021-12-04 07:24] LABS: BASOPHILS # (AUTO) 0.1 (0.0-0.1); BASOPHILS % 0.3 % (0.0-1.0); EOSINOPHILS # (AUTO) 0.1 (0.0-0.4); EOSINOPHILS % 0.2 % (0.0-6.0); HEMATOCRIT 38.3 % (34.2-44.1); HEMOGLOBIN 13.5 g/dL (12.0-16.0); LYMPHOCYTES # (AUTO) 1.1 (1.0-3.2); LYMPHOCYTES % 4.2 % (18.0-39.1); MEAN CORPUSCULAR HEMOGLOBIN 34.4 pg (28-32); MEAN CORPUSCULAR HGB CONC 35.2 g/dL (31-35); MEAN CORPUSCULAR VOLUME 97.5 fL (81-99); MONOCYTES # (AUTO) 0.5 (0.2-0.8); NEUTROPHILS # (AUTO) 24.3 (2.1-6.9); NEUTROPHILS % 91.3 % (38.7-80.0); PLATELET COUNT 310 x10e3/uL (140-360); RED BLOOD COUNT 3.93 x10e6/uL (3.6-5.1); RED CELL DISTRIBUTION WIDTH 13.6 % (11.7-14.4)
[2021-12-04 07:46] LABS: ALANINE AMINOTRANSFERASE 39 IU/L (0-55); ALBUMIN 2.1 g/dL (3.5-5.0); ALBUMIN/GLOBULIN RATIO 0.5 (0.8-2.0); ALKALINE PHOSPHATASE 123 IU/L (40-150); BLOOD UREA NITROGEN 9 mg/dL (7-26); BUN/CREATININE RATIO 12 (6-25); CALCIUM 8.7 mg/dL (8.4-10.2); CARBON DIOXIDE 21 mmol/L (22-29); CHLORIDE 100 mmol/L (98-107); CREATINE KINASE 29 IU/L (29-168); CREATININE, SERUM 0.74 mg/dL (0.57-1.11); GLUCOSE 116 mg/dL (74-118); SODIUM 135 mmol/L (136-145)
[2021-12-04 07:53] LABS: INR 1.23; PROTHROMBIN TIME 16.6 seconds (11.9-14.5)
[2021-12-04 07:54] LABS: PARTIAL THROMBOPLASTIN TIME 36.9 seconds (23.8-35.5)
[2021-12-04 08:00] LABS: LYMPHOCYTES % (MANUAL) 4 % (19-48); MONOCYTES % (MANUAL) 4 % (3.4-9.0); MYELOCYTES % (MANUAL) 1 % (0-0); NEUTROPHILS % (MANUAL) 91 % (40-74)
[2021-12-04 08:01] LABS: PLATELET ESTIMATE ADEQUATE; PLATELET MORPHOLOGY COMMENT NORMAL; RBC MORPHOLOGY COMMENT NORMAL
[2021-12-04 08:49] LABS: INR 1.28; PARTIAL THROMBOPLASTIN TIME 37.3 seconds (23.8-35.5); PROTHROMBIN TIME 17.1 seconds (11.9-14.5)
[2021-12-04] MEDS: MULTIVITAMINS/MINERALS TAB PO SCH (08:51)
[2021-12-04] MEDS: ASCORBIC ACID 500 MG TAB PO SCH ×2 (08:52→16:21)
[2021-12-04] MEDS: ENOXAPARIN 30 MG/0.3 ML SYR SC SCH (08:52)
[2021-12-04] MEDS: FAMOTIDINE 20 MG TAB PO SCH ×2 (08:52→16:21)
[2021-12-04 08:56] LABS: ALBUMIN 1.9 g/dL (3.5-5.0); ALBUMIN/GLOBULIN RATIO 0.4 (0.8-2.0); ANION GAP 15.9 mmol/L (8-16); CALCIUM 8.6 mg/dL (8.4-10.2); CREATININE, SERUM 0.71 mg/dL (0.57-1.11); POTASSIUM 3.9 mmol/L (3.5-5.1)
[2021-12-04] MEDS ORDERED: SODIUM CHLORIDE 0.9% 250ML 250 ML ONE (12:54)
[2021-12-04] MEDS: REMDESIVIR 100MG 100 MG in SODIUM CHLORIDE 0.9% 100 ML IV SCH (15:22)
[2021-12-04] MEDS: ENOXAPARIN INJ 80 MG/0.8 ML SYR SC SCH (20:10)
[2021-12-04] MEDS: ACETAMINOPHEN 325 MG TAB PO PRN (20:27)
[2021-12-05] VITALS (26 sets, daily range): BP systolic 82–148; BP diastolic 41–109
[2021-12-05] MEDS: IPRATROPIUM/ALBUTEROL SULFATE 4 GM INH INH SCH ×7 (00:20→23:50)
[2021-12-05 05:20] LABS: BASOPHILS % 0.1 % (0.0-1.0); EOSINOPHILS % 0.2 % (0.0-6.0); HEMATOCRIT 26.9 % (34.2-44.1); HEMOGLOBIN 12.3 g/dL (12.0-16.0); LYMPHOCYTES % 5.5 % (18.0-39.1); MEAN CORPUSCULAR HEMOGLOBIN 46.1 pg (28-32); MEAN CORPUSCULAR HGB CONC 45.7 g/dL (31-35); MEAN CORPUSCULAR VOLUME 100.7 fL (81-99); MONOCYTES # (AUTO) 0.6 (0.2-0.8); NEUTROPHILS # (AUTO) 16.3 (2.1-6.9); NEUTROPHILS % 89.7 % (38.7-80.0); PLATELET COUNT 272 x10e3/uL (140-360); RED BLOOD COUNT 2.67 x10e6/uL (3.6-5.1); RED CELL DISTRIBUTION WIDTH 14.9 % (11.7-14.4)
[2021-12-05 05:24] LABS: ALBUMIN 1.8 g/dL (3.5-5.0); ALBUMIN/GLOBULIN RATIO 0.4 (0.8-2.0); ANION GAP 16.9 mmol/L (8-16); CALCIUM 8.7 mg/dL (8.4-10.2); CREATININE, SERUM 0.63 mg/dL (0.57-1.11); POTASSIUM 3.9 mmol/L (3.5-5.1)
[2021-12-05] MEDS: FAMOTIDINE 20 MG TAB PO SCH ×2 (07:16→17:02)
[2021-12-05] MEDS: BUDESONIDE/FORMOTEROL 160/4.5MCG INHALER INH SCH ×2 (07:20→19:10)
[2021-12-05] MEDS ORDERED: AMIODARONE 900MG 500 ML IV SCH (08:00)
[2021-12-05] MEDS: ASCORBIC ACID 500 MG TAB PO SCH ×2 (09:16→17:02)
[2021-12-05] MEDS: ENOXAPARIN INJ 80 MG/0.8 ML SYR SC SCH ×2 (09:17→21:18)
[2021-12-05] MEDS: MULTIVITAMINS/MINERALS TAB PO SCH (09:17)
[2021-12-05] MEDS: AMIODARONE HCL 200 MG TAB PO SCH (09:17)
[2021-12-05] MEDS: METOPROLOL SUCCINATE 25 MG TAB XL PO SCH (09:26)
[2021-12-05] MEDS: GUAIFENESIN/CODEINE 5 ML LIQD PO PRN ×2 (09:59→14:12)
[2021-12-05] MEDS ORDERED: KETOROLAC TROMETHAMINE 30 MG/ML VIAL IV ONE (10:45)
[2021-12-05] MEDS: MEROPENEM 1 GM in SODIUM CHLORIDE 0.9% 100 ML IV SCH ×2 (12:53→21:16)
[2021-12-05] MEDS: REMDESIVIR 100MG 100 MG in SODIUM CHLORIDE 0.9% 100 ML IV SCH (14:12)
[2021-12-05] MEDS: ACETAMINOPHEN 325 MG TAB PO PRN (19:30)
[2021-12-05] MEDS ORDERED: ONDANSETRON HCL INJ 2MG/ML 2ML 2 MG/ML VIAL IV PRN (21:45)
[2021-12-06] VITALS (13 sets, daily range): BP systolic 95–128; BP diastolic 45–72
[2021-12-06] MEDS: IPRATROPIUM/ALBUTEROL SULFATE 4 GM INH INH SCH ×6 (03:40→23:30)
[2021-12-06] MEDS: GUAIFENESIN/CODEINE 5 ML LIQD PO PRN ×3 (04:17→17:35)
[2021-12-06 05:03] LABS: BASOPHILS # (AUTO) 0.1 (0.0-0.1); BASOPHILS % 0.4 % (0.0-1.0); EOSINOPHILS # (AUTO) 0.1 (0.0-0.4); EOSINOPHILS % 0.7 % (0.0-6.0); HEMATOCRIT 30.6 % (34.2-44.1); LYMPHOCYTES # (AUTO) 0.8 (1.0-3.2); LYMPHOCYTES % 6.5 % (18.0-39.1); MEAN CORPUSCULAR HEMOGLOBIN 42.8 pg (28-32); MEAN CORPUSCULAR HGB CONC 42.5 g/dL (31-35); MEAN CORPUSCULAR VOLUME 100.7 fL (81-99); MONOCYTES # (AUTO) 0.5 (0.2-0.8); NEUTROPHILS # (AUTO) 11.3 (2.1-6.9); PLATELET COUNT 284 x10e3/uL (140-360); RED BLOOD COUNT 3.04 x10e6/uL (3.6-5.1); RED CELL DISTRIBUTION WIDTH 15.6 % (11.7-14.4)
[2021-12-06 05:22] LABS: ALBUMIN 1.7 g/dL (3.5-5.0); ALBUMIN/GLOBULIN RATIO 0.4 (0.8-2.0); ANION GAP 14.8 mmol/L (8-16); CALCIUM 8.7 mg/dL (8.4-10.2); CREATININE, SERUM 0.66 mg/dL (0.57-1.11); POTASSIUM 3.8 mmol/L (3.5-5.1)
[2021-12-06] MEDS: MEROPENEM 1 GM in SODIUM CHLORIDE 0.9% 100 ML IV SCH ×3 (06:15→20:20)
[2021-12-06] MEDS: BUDESONIDE/FORMOTEROL 160/4.5MCG INHALER INH SCH ×2 (07:18→19:05)
[2021-12-06] MEDS: FAMOTIDINE 20 MG TAB PO SCH ×2 (08:37→17:34)
[2021-12-06] MEDS: AMIODARONE HCL 200 MG TAB PO SCH (08:38)
[2021-12-06] MEDS: MULTIVITAMINS/MINERALS TAB PO SCH (08:38)
[2021-12-06] MEDS: ASCORBIC ACID 500 MG TAB PO SCH ×2 (08:38→17:34)
[2021-12-06] MEDS: METOPROLOL SUCCINATE 25 MG TAB XL PO SCH (08:40)
[2021-12-06] MEDS: ENOXAPARIN INJ 80 MG/0.8 ML SYR SC SCH ×2 (08:40→21:00)
[2021-12-06] MEDS: REMDESIVIR 100MG 100 MG in SODIUM CHLORIDE 0.9% 100 ML IV SCH (14:30)
[2021-12-06] MEDS ORDERED: SODIUM CHLORIDE 0.9% 250ML 250 ML ONE (20:28)
[2021-12-07] VITALS (7 sets, daily range): BP systolic 95–121; BP diastolic 51–68
[2021-12-07] MEDS: IPRATROPIUM/ALBUTEROL SULFATE 4 GM INH INH SCH ×6 (02:35→22:10)
[2021-12-07] MEDS: GUAIFENESIN/CODEINE 5 ML LIQD PO PRN (05:16)
[2021-12-07] MEDS: ACETAMINOPHEN 325 MG TAB PO PRN (05:16)
[2021-12-07] MEDS: MEROPENEM 1 GM in SODIUM CHLORIDE 0.9% 100 ML IV SCH ×3 (05:17→22:14)
[2021-12-07] MEDS: BUDESONIDE/FORMOTEROL 160/4.5MCG INHALER INH SCH ×2 (06:34→19:00)
[2021-12-07 06:39] LABS: BASOPHILS # (AUTO) 0.1 (0.0-0.1); BASOPHILS % 0.5 % (0.0-1.0); EOSINOPHILS # (AUTO) 0.1 (0.0-0.4); EOSINOPHILS % 0.5 % (0.0-6.0); HEMOGLOBIN 11.1 g/dL (12.0-16.0); LYMPHOCYTES % 7.3 % (18.0-39.1); MEAN CORPUSCULAR HEMOGLOBIN 39.4 pg (28-32); MEAN CORPUSCULAR HGB CONC 39.6 g/dL (31-35); MEAN CORPUSCULAR VOLUME 99.3 fL (81-99); MONOCYTES # (AUTO) 0.7 (0.2-0.8); NEUTROPHILS # (AUTO) 11.3 (2.1-6.9); PLATELET COUNT 306 x10e3/uL (140-360); RED BLOOD COUNT 2.82 x10e6/uL (3.6-5.1); RED CELL DISTRIBUTION WIDTH 15.8 % (11.7-14.4)
[2021-12-07 07:16] LABS: ANION GAP 13.7 mmol/L (8-16); CREATININE, SERUM 0.59 mg/dL (0.57-1.11); MAGNESIUM 2.2 MG/DL (1.3-2.1); POTASSIUM 3.7 mmol/L (3.5-5.1)
[2021-12-07] MEDS: FAMOTIDINE 20 MG TAB PO SCH ×2 (07:50→16:45)
[2021-12-07] MEDS: ENOXAPARIN INJ 80 MG/0.8 ML SYR SC SCH (09:05)
[2021-12-07] MEDS: ASCORBIC ACID 500 MG TAB PO SCH ×2 (09:40→16:45)
[2021-12-07] MEDS: METOPROLOL SUCCINATE 25 MG TAB XL PO SCH (09:40)
[2021-12-07] MEDS: MULTIVITAMINS/MINERALS TAB PO SCH (09:40)
[2021-12-07] MEDS: AMIODARONE HCL 200 MG TAB PO SCH (09:40)
[2021-12-07] MEDS: APIXABAN 5 MG TABLET PO SCH (16:45)
[2021-12-08] VITALS (8 sets, daily range): BP systolic 96–127; BP diastolic 53–69
[2021-12-08] MEDS: IPRATROPIUM/ALBUTEROL SULFATE 4 GM INH INH SCH ×6 (02:20→23:30)
[2021-12-08] MEDS: MEROPENEM 1 GM in SODIUM CHLORIDE 0.9% 100 ML IV SCH ×3 (06:44→21:24)
[2021-12-08] MEDS: BUDESONIDE/FORMOTEROL 160/4.5MCG INHALER INH SCH ×2 (06:58→19:10)
[2021-12-08] MEDS: APIXABAN 5 MG TABLET PO SCH ×2 (08:41→16:12)
[2021-12-08] MEDS: AMIODARONE HCL 200 MG TAB PO SCH (08:41)
[2021-12-08] MEDS: ASCORBIC ACID 500 MG TAB PO SCH ×2 (08:41→16:12)
[2021-12-08] MEDS: FAMOTIDINE 20 MG TAB PO SCH ×2 (08:41→16:11)
[2021-12-08] MEDS: METOPROLOL SUCCINATE 25 MG TAB XL PO SCH (08:42)
[2021-12-08] MEDS: GUAIFENESIN/CODEINE 5 ML LIQD PO PRN ×2 (08:47→16:11)
[2021-12-08] MEDS: MULTIVITAMINS/MINERALS TAB PO SCH (08:47)
[2021-12-08] MEDS ORDERED: GUAIFENESIN/CODEINE 5 ML LIQD PO PRN (19:30)
[2021-12-09] VITALS: BP 116/49
[2021-12-09] MEDS: IPRATROPIUM/ALBUTEROL SULFATE 4 GM INH INH SCH ×2 (03:00→07:30)
[2021-12-09] MEDS: GUAIFENESIN/CODEINE 5 ML LIQD PO PRN (03:26)
[2021-12-09] MEDS: ACETAMINOPHEN 325 MG TAB PO PRN (03:28)
[2021-12-09 04:00] VITALS: BP 111/60
[2021-12-09] MEDS: MEROPENEM 1 GM in SODIUM CHLORIDE 0.9% 100 ML IV SCH (06:04)
[2021-12-09 06:31] LABS: BASOPHILS % 0.3 % (0.0-1.0); EOSINOPHILS # (AUTO) 0.1 (0.0-0.4); EOSINOPHILS % 0.6 % (0.0-6.0); HEMATOCRIT 27.7 % (34.2-44.1); HEMOGLOBIN 10.7 g/dL (12.0-16.0); LYMPHOCYTES # (AUTO) 1.1 (1.0-3.2); LYMPHOCYTES % 9.9 % (18.0-39.1); MEAN CORPUSCULAR HEMOGLOBIN 39.2 pg (28-32); MEAN CORPUSCULAR HGB CONC 38.6 g/dL (31-35); MEAN CORPUSCULAR VOLUME 101.5 fL (81-99); MONOCYTES # (AUTO) 0.8 (0.2-0.8); MONOCYTES % 7.1 % (4.4-11.3); NEUTROPHILS # (AUTO) 8.7 (2.1-6.9); NEUTROPHILS % 80.9 % (38.7-80.0); PLATELET COUNT 370 x10e3/uL (140-360); RED BLOOD COUNT 2.73 x10e6/uL (3.6-5.1); RED CELL DISTRIBUTION WIDTH 15.9 % (11.7-14.4)
[2021-12-09 06:48] LABS: ALBUMIN 1.7 g/dL (3.5-5.0); ALBUMIN/GLOBULIN RATIO 0.4 (0.8-2.0); CREATININE, SERUM 0.61 mg/dL (0.57-1.11); PHOSPHORUS 3.4 MG/DL (2.3-4.7)
[2021-12-09] MEDS: BUDESONIDE/FORMOTEROL 160/4.5MCG INHALER INH SCH (07:30)
[2021-12-09 08:08] VITALS: BP 103/55
[2021-12-09 08:54] VITALS: BP 103/55
[2021-12-09] MEDS ORDERED: TRAMADOL HCL 50 MG TAB PO PRN (09:45)
[2021-12-09] MEDS: FAMOTIDINE 20 MG TAB PO SCH (10:10)
[2021-12-09] MEDS: AMIODARONE HCL 200 MG TAB PO SCH (10:10)
[2021-12-09] MEDS: MULTIVITAMINS/MINERALS TAB PO SCH (10:12)
[2021-12-09] MEDS: APIXABAN 5 MG TABLET PO SCH (10:12)
[2021-12-09] MEDS: METOPROLOL SUCCINATE 25 MG TAB XL PO SCH (10:13)
[2021-12-09] MEDS: ASCORBIC ACID 500 MG TAB PO SCH (10:13)
[2021-12-09] MEDS ORDERED: TRAMADOL HCL 50 MG TAB PO ONE (10:30)
[2021-12-09 12:03] VITALS: BP 115/64
[2021-12-09] MEDS ORDERED: ASCORBIC ACID500 MG PO (13:20)
[2021-12-09] MEDS ORDERED: AMIODARONE HCL200 MG PO (13:20)
[2021-12-09] MEDS ORDERED: ULTRAM 50MG50 MG PO (13:20)
[2021-12-09] MEDS ORDERED: Multivitamins/Minerals PO (13:20)
[2021-12-09] MEDS ORDERED: ACETAMINOPHEN325 M1 PO (13:20)
[2021-12-09] MEDS ORDERED: ELIQUIS5 MG PO (13:20)
[2021-12-09] MEDS ORDERED: GUAIFEN-CODEINE5 ML PO (13:20)
[2021-12-09] MEDS ORDERED: COMBIVENT RESPIM4 GM INH (13:20)
[2021-12-09] MEDS ORDERED: TOPROL XL25 MG PO (13:20)
[2021-12-09] MEDS ORDERED: LEVOFLOXACIN250 MG PO (13:20)
[2021-12-09] MEDS ORDERED: ONDANSETRON HCL 4 MG ORAL DISINTEGRATING TAB PO PRN (14:45)
== END 2021-12-09 15:45 | disposition home or self-care (01) | DRG 871 ==
LOC: ER 11:45 → ERHOLD 14:16 → MED/SURG2 15:36 → ICU 12-04 06:43 → MED/SURG3 12-06 15:25
PROVIDERS: ADMIT Internal Medicine; ATTEND Internal Medicine
PROC: XW033E5 Introduction of Remdesivir Anti-infective into Peripheral Vein, Percutaneous Approach, New Technology Group 5 (ICD-10-PCS; principal; 2021-12-02)
DX: A41.89 Other specified sepsis (principal); J12.82 Pneumonia due to coronavirus disease 2019; U07.1 COVID-19; J96.21 Acute and chronic respiratory failure with hypoxia; J15.1 Pneumonia due to Pseudomonas; N39.0 Urinary tract infection, site not specified; N17.9 Acute kidney failure, unspecified; I48.92 Unspecified atrial flutter; I48.91 Unspecified atrial fibrillation; Z79.01 Long term (current) use of anticoagulants; R91.1 Solitary pulmonary nodule; F41.9 Anxiety disorder, unspecified; J43.9 Emphysema, unspecified; I11.9 Hypertensive heart disease without heart failure; Z88.1 Allergy status to other antibiotic agents; Z88.0 Allergy status to penicillin; Z88.2 Allergy status to sulfonamides; Z87.891 Personal history of nicotine dependence; R59.1 Generalized enlarged lymph nodes
CPT/HCPCS: 36415; 71045; 71250; 80048; 80053; 81001; 81003; 82550; 82553; 83605; 83735; 83880; 84100; 84145; 84443; 84484; 85025; 85610; 85651; 85730; 86141; 87040; 87070; 87086; 87186; 87205; 93005; 93306; 94640; 94664; 94799; 99251; 99284; J0248; J0456; J0696; J1650; J1885; J2185; J2405; J7030; J7050

== ENCOUNTER 2024-03-10 20:14 | Inpatient (IN) | payer MEDICARE, BC ==
[~2024-03-10] VITALS: Ht 175.3 cm; Wt 64.9 kg
[~2024-03-10 20:14] MED LIST changes: +ACETAMINOPHEN325 M1 PO; +AMIODARONE HCL200 MG PO; +ASCORBIC ACID500 MG PO; +COMBIVENT RESPIM4 GM INH; +ELIQUIS5 MG PO; +GUAIFEN-CODEINE5 ML PO; +LEVOFLOXACIN250 MG PO; +Multivitamins/Minerals PO; +TOPROL XL25 MG PO; +ULTRAM 50MG50 MG PO
[2024-03-10 20:43] LABS: BASOPHILS # (AUTO) 0.1 (0.0-0.1); BASOPHILS % 0.6 % (0.0-1.0); EOSINOPHILS # (AUTO) 0.1 (0.0-0.4); EOSINOPHILS % 0.5 % (0.0-6.0); HEMATOCRIT 46.1 % (34.2-44.1); LYMPHOCYTES # (AUTO) 2.9 (1.0-3.2); LYMPHOCYTES % 23.7 % (18.0-39.1); MEAN CORPUSCULAR HEMOGLOBIN 32.8 pg (28-32); MEAN CORPUSCULAR HGB CONC 32.5 g/dL (31-35); MEAN CORPUSCULAR VOLUME 100.7 fL (81-99); MONOCYTES # (AUTO) 0.8 (0.2-0.8); MONOCYTES % 6.6 % (4.4-11.3); NEUTROPHILS # (AUTO) 8.4 (2.1-6.9); NEUTROPHILS % 68.3 % (38.7-80.0); PLATELET COUNT 212 x10e3/uL (140-360); RED BLOOD COUNT 4.58 x10e6/uL (3.6-5.1); RED CELL DISTRIBUTION WIDTH 13.5 % (11.7-14.4); WHITE BLOOD COUNT 12.37 x10e3/uL (4.8-10.8)
[2024-03-10] MEDS: SODIUM CHLORIDE 0.9% 1000ML 1,000 ML IV STA (20:55)
[2024-03-10 21:01] LABS: ALBUMIN/GLOBULIN RATIO 1.1 (0.8-2.0); ANION GAP 18.7 mmol/L (8-16); BILIRUBIN,TOTAL 0.7 mg/dL (0.2-1.2); CALCIUM 9.4 mg/dL (8.4-10.2); CREATININE, SERUM 1.17 mg/dL (0.57-1.11); POTASSIUM 4.7 mmol/L (3.5-5.1); TOTAL PROTEIN 7.6 g/dL (6.5-8.1)
[2024-03-10] MEDS: LEVOFLOXACIN 750MG/D5W 150ML 150 ML IV SCH (21:01)
[2024-03-10] MEDS: ACETAMINOPHEN 325 MG TAB PO STA (21:01)
[2024-03-10 21:03] LABS: INFLUENZAE A&B ANTIGEN (RAPID) NEGATIVE (NEGATIVE)
[2024-03-10 21:07] LABS: TROPONIN I 0.005 ng/mL (0-0.300)
[2024-03-10 21:08] LABS: B-TYPE NATRIURETIC PEPTIDE2 169.2 pg/mL (0-100)
[2024-03-10] MEDS ORDERED: IOPAMIDOL 370 MG/ML 100 ML INFUS..BTL INJ ONE (21:56)
[2024-03-10] MEDS ORDERED: ONDANSETRON HCL INJ 2MG/ML 2ML 2 MG/ML VIAL IV PRN (22:00)
[2024-03-10] MEDS ORDERED: Morphine 2mg Syringe 2 MG/ML SYR IV PRN (22:00)
[2024-03-10 22:14] VITALS: TEMP 98.8
[2024-03-10] MEDS: METHYLPREDNISOLONE SOD SUCC 40 MG/ML VIAL 1ML IV SCH (22:18)
[2024-03-10] MEDS: ALBUTEROL SULF 0.083% NEB SOLN 3 ML NEB NEB SCH (22:31)
[2024-03-10 22:32] VITALS: PULSE 68; RESP 18; O2SAT 99
[2024-03-10 23:16] VITALS: PULSE 77; RESP 23
[2024-03-10] MEDS: SODIUM CHLORIDE 0.9% 1000ML 1,000 ML IV SCH (23:24)
[2024-03-11] VITALS (12 sets, daily range): BP systolic 118–161; BP diastolic 62–103; PULSE 60–89; RESP 18–23; TEMP 97.6–98.8; O2SAT 92–98
[2024-03-11 06:44] LABS: BASOPHILS % 0.2 % (0.0-1.0); HEMATOCRIT 43.3 % (34.2-44.1); HEMOGLOBIN 13.8 g/dL (12.0-16.0); LYMPHOCYTES # (AUTO) 0.9 (1.0-3.2); LYMPHOCYTES % 8.5 % (18.0-39.1); MEAN CORPUSCULAR HEMOGLOBIN 32.8 pg (28-32); MEAN CORPUSCULAR HGB CONC 31.9 g/dL (31-35); MEAN CORPUSCULAR VOLUME 102.9 fL (81-99); MONOCYTES # (AUTO) 0.1 (0.2-0.8); MONOCYTES % 0.5 % (4.4-11.3); NEUTROPHILS # (AUTO) 9.3 (2.1-6.9); NEUTROPHILS % 90.3 % (38.7-80.0); PLATELET COUNT 188 x10e3/uL (140-360); RED BLOOD COUNT 4.21 x10e6/uL (3.6-5.1); RED CELL DISTRIBUTION WIDTH 13.6 % (11.7-14.4); WHITE BLOOD COUNT 10.25 x10e3/uL (4.8-10.8)
[2024-03-11 07:16] LABS: ALBUMIN 3.5 g/dL (3.5-5.0); ANION GAP 14.2 mmol/L (8-16); BILIRUBIN,TOTAL 0.4 mg/dL (0.2-1.2); CREATININE, SERUM 0.99 mg/dL (0.57-1.11); POTASSIUM 4.2 mmol/L (3.5-5.1); TOTAL PROTEIN 7.1 g/dL (6.5-8.1)
[2024-03-11 07:43] LABS: CREATINE KINASE 84 IU/L (29-168)
[2024-03-11 07:49] LABS: TROPONIN I < 0.001 ng/mL (0-0.300)
[2024-03-11 14:58] LABS: CREATINE KINASE 98 IU/L (29-168)
[2024-03-11 15:06] LABS: TROPONIN I < 0.001 ng/mL (0-0.300)
[2024-03-11] MEDS ORDERED: PREDNISONE20 MG PO (16:29)
[2024-03-11] MEDS ORDERED: LEVOFLOXACIN250 MG PO (16:29)
[2024-03-11] MEDS ORDERED: ACETAMINOPHEN 325 MG TAB PO PRN (17:15)
[2024-03-11] MEDS ORDERED: TRAMADOL HCL 50 MG TAB PO PRN (17:15)
[2024-03-11] MEDS ORDERED: ALBUTEROL 90 MCG/ACT INHALER INH PRN (17:15)
[2024-03-11] MEDS: METHYLPREDNISOLONE SOD SUCC 40 MG/ML VIAL 1ML IV SCH (21:19)
[2024-03-11] MEDS: MELATONIN 3 MG TAB PO SCH (21:19)
[2024-03-12] VITALS (9 sets, daily range): BP systolic 129–162; BP diastolic 63–80; PULSE 70–91; RESP 18; TEMP 97.6–98.7; O2SAT 94–99
[2024-03-12] MEDS: METOPROLOL SUCCINATE 25 MG TAB XL PO SCH (09:43)
[2024-03-12] MEDS: APIXABAN 5 MG TABLET PO SCH (09:43)
[2024-03-12] MEDS: AMIODARONE HCL 200 MG TAB PO SCH (09:44)
== END 2024-03-12 15:33 | disposition home or self-care (01) | DRG 190 ==
LOC: ER 20:18 → ERHOLD 21:58 → MED/SURG3 03-11 00:09
PROVIDERS: ADMIT Internal Medicine; ATTEND Internal Medicine
DX: J44.0 Chronic obstructive pulmonary disease with (acute) lower respiratory infection (principal); J18.9 Pneumonia, unspecified organism; J44.1 Chronic obstructive pulmonary disease with (acute) exacerbation; R09.02 Hypoxemia; I48.0 Paroxysmal atrial fibrillation; I10 Essential (primary) hypertension; F41.9 Anxiety disorder, unspecified; Z11.52 Encounter for screening for COVID-19; Z79.01 Long term (current) use of anticoagulants; Z79.51 Long term (current) use of inhaled steroids; Z90.49 Acquired absence of other specified parts of digestive tract; Z88.0 Allergy status to penicillin; Z88.1 Allergy status to other antibiotic agents; Z88.2 Allergy status to sulfonamides; Z87.891 Personal history of nicotine dependence
CPT/HCPCS: 36415; 71045; 71260; 80053; 82550; 83605; 83690; 83880; 84484; 85025; 87040; 87400; 93005; 93306; 94640; 94799; 99285; J2919; J7030; Q9967; U0002

== ENCOUNTER → 2024-10-13 | Outpatient (REF) | payer MEDICARE, BC ==
[~2024-10-13] MED LIST changes: +IOPAMIDOL 370 MG/ML 100 ML INFUS..BTL INJ ONE; +PREDNISONE20 MG PO; +SODIUM CHLORIDE 0.9% 100 ML ONE
[2024-10-13 12:17] LABS: CREATININE, SERUM 1.08 mg/dL (0.57-1.11)
== END ==
LOC: CT 11:11
PROVIDERS: ATTEND Internal Medicine Cardiovascular Disease
DX: I48.0 Paroxysmal atrial fibrillation (principal); I25.10 Atherosclerotic heart disease of native coronary artery without angina pectoris; I70.213 Atherosclerosis of native arteries of extremities with intermittent claudication, bilateral legs; I10 Essential (primary) hypertension
CPT/HCPCS: 36415; 74174; 82565; 84520; J7050; Q9967